=== PATIENT | female | born 1995 | race Caucasian/White ===

== ENCOUNTER 2021-06-10 11:21 | Emergency (ER) | payer OTHER, MEDICAID ==
[~2021-06-10] VITALS: Ht 177.8 cm; Wt 74.8 kg
[~2021-06-10 11:21] MED LIST: APAP650 PO; DEPO-MEDRO40 MG/1 ML; DEPO-PROVER150 MG/M1; FLEXERIL PO; IBUPROFEN 800800 M1 PO; INDOMETHACIN 2525 MG PO; IRON325 PO; MAGNESIUM500 MG PO; OMEPRAZOLE40 MG PO; PERCOCET 5-3251 EACH PO; PRILOSEC 20 MG20 MG; PROTONIX 20 MG20 M1 PO; PROZAC 20 MG20 MG PO; SEROQUEL 100 M100 M1 PO; ULTRACET TABLE1 EACH PO; VYVANSE50 MG PO; [UNRECOGNIZED DRUG - OTHER] PO
[2021-06-10 11:42] VITALS: BP 123/76
== END 2021-06-10 13:34 | disposition home or self-care (01) ==
LOC: M.ERS 11:21
DX: S63.501A Unspecified sprain of right wrist, initial encounter (principal); G43.909 Migraine, unspecified, not intractable, without status migrainosus; K21.9 Gastro-esophageal reflux disease without esophagitis; F32.9 Major depressive disorder, single episode, unspecified; Z86.16 Personal history of COVID-19; Z91.040 Latex allergy status; W22.09XA Striking against other stationary object, initial encounter; Y93.71 Activity, boxing; Y92.89 Other specified places as the place of occurrence of the external cause; Y99.8 Other external cause status

== ENCOUNTER 2021-11-21 09:25 | Emergency (ER) | payer OTHER, MEDICAID ==
[~2021-11-21] VITALS: Ht 175.3 cm; Wt 77.6 kg
[2021-11-21 10:11] LABS: URINE BLOOD NEGATIVE (Negative); URINE CLARITY CLEAR; URINE COLOR YELLOW; URINE GLUCOSE-RANDOM NEGATIVE (Negative); URINE LEUKOCYTES-REFLEX NEGATIVE (Negative); URINE NITRITE-REFLEX NEGATIVE (Negative); URINE PROTEIN TRACE (Negative); URINE SPECIFIC GRAVITY >= 1.030 (1.005-1.030); URINE UROBILINOGEN 0.2 E.U./dl (0.2-1.0)
[2021-11-21 10:47] LABS: URINE BILIRUBIN 1+ (Negative); URINE KETONES 3+ (Negative)
[2021-11-21 10:48] LABS: ICTOTEST (BILI CONFIRMATORY) Negative (Negative)
[2021-11-21 10:50] LABS: BACTERIA-REFLEX None Seen /HPF (None Seen); CASTS None Seen /LPF (None Seen); CRYSTALS None Seen /LPF (None Seen); SQUAMOUS 4-10 Moderate /LPF (0-3); URINE RBC 3-10 Few /HPF (0-2); URINE WBC-REFLEX None Seen /HPF (0-5)
[2021-11-21 11:52] LABS: ABSOLUTE LYMPHOCYTES 1.1 thou/uL (0.8-5.3); ABSOLUTE MONOCYTES 0.4 thou/uL (0.0-1.2); ABSOLUTE NEUTROPHILS 2.8 thou/uL (1.6-8.1); BASOPHILS 0.4 %; EOSINOPHILS 0.5 %; HEMATOCRIT 42.4 % (37.0-47.0); HEMOGLOBIN 14.4 gm/dL (12.0-15.0); LYMPHOCYTES 25.2 %; MCH 28.8 pg (26.0-34.0); MCHC 34.1 g/dL (28.0-37.0); MCV 84.4 fL (80.0-100.0); MONOCYTES 9.7 %; MPV 10.1 fl. (7.2-11.1); NUCLEATED RBCS 0 /100WBC; PLATELET COUNT* 156 thou/uL (150-400); POLYS 64.2 %; RBC 5.02 mil/uL (4.20-5.00); RDW-CV 13.2 % (10.5-14.5); WBC 4.3 thou/uL (4.0-11.0)
[2021-11-21 11:59] LABS: CALCIUM 7.9 mg/dL (8.5-10.1); CREATININE 0.7 mg/dL (0.6-1.3); POTASSIUM 3.3 mmol/L (3.5-5.1)
[2021-11-21 12:03] LABS: ALBUMIN 3.6 g/dL (3.4-5.0); TOTAL BILIRUBIN 0.7 mg/dL (<0.1-1.0); TOTAL PROTEIN 6.8 g/dL (6.4-8.2)
[2021-11-21] MEDS ORDERED: ONDANSETRON ODT4 MG PO (12:16)
[2021-11-21 12:30] VITALS: BP 122/76
== END 2021-11-21 12:31 | disposition home or self-care (01) ==
LOC: M.ERS 09:25
PROVIDERS: Emergency Medicine; Physician Assistant
DX: R11.2 Nausea with vomiting, unspecified (principal); R19.7 Diarrhea, unspecified; F32.9 Major depressive disorder, single episode, unspecified; K21.9 Gastro-esophageal reflux disease without esophagitis; G43.909 Migraine, unspecified, not intractable, without status migrainosus; Z86.16 Personal history of COVID-19; Z91.040 Latex allergy status